=== PATIENT | male | born 1945 | race Two or more races ===

== ENCOUNTER 2018-06-15 17:48 | Emergency (ER) | payer MEDICARE, MEDICAID ==
[~2018-06-15] VITALS: Ht 185.4 cm; Wt 72.6 kg
--- NOTE | 2018-06-15 17:48 | NUR ---
ED Nurse Note: PT BROUGHT IN BY AMBULANCE FROM [facility]. PER EMS, PT BROUGHT IN DUE TO DIFFICULTY SWALLOWING X 2 DAYS AGO FROM MASS ON RIGHT SIDE OF NECK. PT STATES THE MASS STARTED TO FORM X 1 MONTH AGO AND HAS BEEN INCREASING IN SIZE SINCE THEN. HOWEVER, PT DENIES HAVING DIFFCULTY SWALLOWING OR BREATHING. WHEN ASKED FOR MORE INFORMATION ON NECK MASS, PT STATES HE IS UNSURE OF WHAT THE DIAGNOSIS IS THOUGH HE DID SEE A SPECIALIST X LAST WEEK. PT STATES HE HAS AN APPOINTMENT LATER THIS WEEK TO "GET THE MASS DRAINED." RR11@100% O2 SAT ON RA AT BEDSIDE.
--- NOTE | 2018-06-15 17:55 | NUR ---
ED Nurse Note: [facility] CALLED TO VERIFY REASON FOR SENDING PT TO [facility]. PER ROBERTA RN AT FACILITY, PT RECORDS INDICATE THAT PT WAS HAVING INCREASE IN DIFFICULTY SWALLOWING PER DAY NURSE. PT CONTINUES TO DENY HAVING ANY DIFFICULTY EATING, DRINKING, OR BREATHING.
[2018-06-15] MEDS ORDERED: CLOTRIMAZOLE15 GM TOPIC (17:56)
[2018-06-15] MEDS ORDERED: FLEET ENEMA133 M1 RC (17:56)
[2018-06-15] MEDS ORDERED: DULCOLAX10 MG RC (17:56)
[2018-06-15] MEDS ORDERED: METHADONE HCL40 M1 PO (17:56)
[2018-06-15 18:09] VITALS: BP 124/65
--- NOTE | 2018-06-15 19:02 | NUR ---
ED Nurse Note: PT DOES NOT WISH TO STAY IN THE HOSPITAL AND BE TREATED. PT STATES "I JUST WANT TO GO BACK HOME." DR. ROMO AND PRIMARY RN AT BEDSIDE EXPLAINING AT LENGTH THE RISKS AND CONSEQUENCES INVOLVED IN LEAVING THE HOSPITAL WELL THE BENEFITS OF CONTINUED TREATMENT AND HOSPITALIZATION AND THE ALTERNATIVES. PT VERBALIZES UNDERSTANDING BUT STILL REFUSES TO RECEIVE TREATMENT AT THIS TIME. AMA FORM SIGNED BY PATIENT AND WITNESSED BY PRIMARY RN AND DR. ROMO. TRANSPORTATION ARRANGED FOR PT TO RETURN TO [facility] VIA AMBULANCE. PT STATES HE WILL WAIT FOR TRANSPORTATION.
[2018-06-15 19:06] VITALS: BP 122/68
--- NOTE | 2018-06-15 19:12 | NUR ---
ED Nurse Note: [facility] CALLED. REPORT GIVEN TO LUIGI MARTINS TO UPDATE ON STATUS OF PATIENT AND HOW HE WANTS TO LEAVE AMA. LUIGI MARTINS ALSO UPDATED THAT AMBULANCE IS SCHEDULED FOR PT P[facility] HERE AT [facility] WITH ETA OF ABOUT 30 MINUTES.
--- NOTE | 2018-06-15 19:13 | NUR ---
ED Nurse Note: REPORT GIVEN TO ARABELLA PETERSON RN.
--- NOTE | 2018-06-15 19:21 | NUR ---
ED Nurse Note: Received pt from LUIGI Tatum. Candy in [facility]. refuses to stay in room. AMA signed and acknowledged by CARL. NAD A04. Facillity and family member notified of refusal of care. Awaiting ambulance.
--- NOTE | 2018-06-19 00:18 | Emergency Room Report ---
History of Present Illness General Chief Complaint: General Complaint Source: EMS Present Illness HPI Patient is a 72-year-old male presented after increased difficulty breathing. Patient was noted to have prior history of squamous neck cancer. He was noted to be having some increased difficulty breathing breathing per facility. Patient was noted to have large neck mass. History is markedly limited by patient's poor cooperation. Allergies: Coded Allergies: No Known Allergies (Unverified , 06/15/18) Patient History Past Medical History: see triage record Reviewed Nursing Documentation: PMH: Agreed; PSxH: Agreed Nursing Documentation-PMH Past Medical History: No History, Except For Review of Systems All Other Systems: limited - by poor cooperation Physical Exam Vital Signs Date Time Temp Pulse Resp B/P (MAP) Pulse Ox O2 Delivery O2 Flow Rate FiO2 06/15/18 17:39 97.5 62 17 109/59 95 Room Air Sp02 EP Interpretation: reviewed, normal General Appearance: normal inspection, well appearing, no apparent distress, alert, Chronically Ill Head: atraumatic ENT: normal ENT inspection, hearing grossly normal, normal voice Neck: normal inspection, full range of motion, supple, no bony tend, other - large right sided neck mass, no stridor Respiratory: normal inspection, lungs clear, normal breath sounds, no respiratory distress, no retraction, no wheezing Cardiovascular #1: regular rate, rhythm, no edema Gastrointestinal: normal inspection, normal bowel sounds, non tender, soft, no guarding, no hernia Genitourinary: no CVA tenderness Musculoskeletal: normal inspection, back normal, normal range of motion Neurologic: normal inspection, alert, oriented x3, responsive, hydrochloric area supervisor III-XII nml as tested, speech normal Psychiatric: normal inspection, judgement/insight normal, mood/affect normal Skin: normal inspection, normal color, no rash Medical Decision Making Diagnostic Impression: Primary Impression: Mass in neck ER Course Patient presented for right-sided neck mass. Differential diagnosis include was not limited to obstruction, esophageal invasion among others. Patient was noted to have prior history of neck cancer. Patient refused any workup. Patient stated he did not want to be seen in the hospital and was discharged back to his facility. Patient was noted to have DNR and did not want any further treatment at this time. Patient was advised to return at any time.Dr. Pineda was notified of patient's leaving AGAINST MEDICAL ADVICE Last Vital Signs Date Time Temp Pulse Resp B/P (MAP) Pulse Ox O2 Delivery O2 Flow Rate FiO2 06/15/18 19:06 98.0 62 12 122/68 100 Room Air Status: improved Disposition: AGAINST MEDICAL ADVICE Condition: Stable Referrals: William Pineda MD (PCP) Baldev Caceres MD Jun 19, 2018 00:18
== END 2018-06-15 19:10 | disposition left against medical advice (07) ==
LOC: EDBD 17:48 → EMR 18:27
DX: R22.1 Localized swelling, mass and lump, neck (principal); Z53.21 Procedure and treatment not carried out due to patient leaving prior to being seen by health care provider
CPT/HCPCS: 99282